=== PATIENT | female | born 1990 | race American Indian/Alaskan Native ===

== ENCOUNTER 2017-04-21 11:59 | Emergency (ER) | payer MEDICAID ==
--- NOTE | 2017-04-21 13:53 | Emergency Department Report ---
Entered by MACY STEINER, acting as scribe for ISI MULLEN PA. Chief Complaint: Vaginal Bleeding Stated Complaint: PREG/SPOTTING/ITCHING Time Seen by Provider: 04/21/17 13:13 - HPI History of Present Illness: Pt that is presents with c/o vaginal spotting for 2 days. Notes that she doesn't know how many weeks she is. Reports associated vaginal itching and cramping 6/10 pelvic pain. Notes she took 5 at home tests with positive results. Aggravated with movement and walking around, and alleviated with sleeping. Reports urinary frequency. Denies flowing vaginal bleeding or clots. Denies dysuria. LMP 03/20/2017. L4 PMHx of HTN PSHx of appendectomy - ROS Review of Systems: All system are negative unless stated in HPI above. - Exam Vital Signs: Vital Signs 04/21/17 12:59 Temperature 99.3 F Pulse Rate 76 Respiratory 16 Rate Blood Pressure 124/71 O2 Sat by Pulse 100 Oximetry Physical Exam: General: well nourished, well developed, 27 year old female in no acute distress and nontoxic in appearance Abdomen: Soft, normal bowel sounds in all quadrants and negative CVA tenderness bilaterally. Tenderness to palpation to pelvic area. No distension or rigidity noted. Positive guarding. No rebound. MSE screening note: Focused history and physical exam performed. Due to findings the following was ordered: see below ED Medical Decision Making - Medical Decision Making MDM: Patient screened by provider in triage area. Appropriate protocol initiated. Patient to be seen by MD on main ED side. ED Disposition for MSE Condition: Stable This documentation as recorded by the scribe,MACY STEINER,accurately reflects the service I personally performed and the decisions made by me,ISI MULLEN PA.
[2017-04-21 14:34] LABS: Basophils % (Auto) 0.4 % (0.0-1.8); Eosinophils % (Auto) 1.5 % (0.0-4.3); Hematocrit 37.9 % (30.3-42.9); Hemoglobin 13.4 gm/dl (10.1-14.3); Mean Corpuscular HGB Conc 35 % (30-34); Mean Corpuscular Hemoglobin 32 pg (28-32); Mean Corpuscular Volume 90 fl (79-97); Platelet Count 269 K/mm3 (140-440); Red Blood Count 4.21 M/mm3 (3.65-5.03); Red Cell Distribution Width 13.1 % (13.2-15.2); White Blood Count 9.1 K/mm3 (4.5-11.0)
[2017-04-21 15:10] LABS: Bilirubin,Urine NEG (Negative); Blood,Urine NEG (Negative); Ketones,Urine NEG (Negative); Leukocyte Esterase,Urine NEG (Negative); Mucus,Urine FEW /HPF; Nitrite,Urine NEG (Negative); Protein,Urine <15 mg/dL mg/dL (Negative); Urobilinogen,Urine < 2.0 mg/dL (<2.0)
[2017-04-21 15:16] LABS: WBC,Urine < 1.0 /HPF (0.0-6.0)
--- NOTE | 2017-04-21 16:00 | Ultrasound Report ---
OB ultrasound: with pain and bleeding. Endovaginal and transabdominal imaging demonstrates an anteverted uterus measuring approximately 6.3 x 6.5 x 10.8 cm. There is an 11 mm subendometrial appearing fibroid. The myometrium is otherwise unremarkable. The endometrial thickness is 14.3 mm. No evidence of endometrial . The right ovary measures 3.8 cm and contains a 2 cm slightly complex cyst. The left ovary measures 3 cm and is echogenically unremarkable. No adnexal masses and no free fluid identified. Impression: No current evidence of intra-or extrauterine . Right ovarian cyst.
[2017-04-21 16:57] VITALS: BP 109/57
== END 2017-04-21 17:24 | disposition left against medical advice (07) ==
LOC: ED 11:59
DX: O26.859 Spotting complicating pregnancy, unspecified trimester (principal); I10 Essential (primary) hypertension; Z3A.00 Weeks of gestation of pregnancy not specified; Z53.21 Procedure and treatment not carried out due to patient leaving prior to being seen by health care provider
CPT/HCPCS: 36415; 76801; 76817; 81001; 84702; 84703; 85025; 86850; 86900; 86901

== ENCOUNTER 2019-01-25 03:04 | Emergency (ER) | payer MEDICAID ==
[2019-01-25 03:10] VITALS: BP 123/81
[2019-01-25 03:47] LABS: Bilirubin,Urine NEG (Negative); Blood,Urine SM (Negative); Color,Urine Straw (Yellow); Protein,Urine <15 mg/dL mg/dL (Negative); Urobilinogen,Urine < 2.0 mg/dL (<2.0)
[2019-01-25 03:59] LABS: Hematocrit 42.5 % (30.3-42.9); Hemoglobin 15.2 gm/dl (10.1-14.3); Mean Corpuscular Volume 92 fl (79-97); Red Blood Count 4.62 M/mm3 (3.65-5.03)
[2019-01-25 04:00] LABS: Basophils % (Auto) 0.9 % (0.0-1.8); Eosinophils # (Auto) 0.5 K/mm3 (0.0-0.4); Eosinophils % (Auto) 5.3 % (0.0-4.3); Lymphocytes # (Auto) 3.9 K/mm3 (1.2-5.4); Lymphocytes % (Auto) 37.9 % (13.4-35.0); Mean Corpuscular HGB Conc 36 % (30-34); Monocytes # (Auto) 0.6 K/mm3 (0.0-0.8); Monocytes % (Auto) 5.9 % (0.0-7.3); Platelet Count 251 K/mm3 (140-440); Red Cell Distribution Width 13.5 % (13.2-15.2)
[2019-01-25 04:01] LABS: Basophils # (Auto) 0.1 K/mm3 (0.0-0.1)
[2019-01-25 04:06] LABS: Alanine Aminotransferase 16 units/L (7-56); BUN/Creatinine Ratio 15; Blood Urea Nitrogen 9 mg/dL (7-17); Calcium 8.8 mg/dL (8.4-10.2); Hemolysis Index 9
== END 2019-01-25 05:59 | disposition left against medical advice (07) ==
LOC: ED 03:04
DX: R10.9 Unspecified abdominal pain (principal); Z53.21 Procedure and treatment not carried out due to patient leaving prior to being seen by health care provider
CPT/HCPCS: 36415; 80053; 81001; 83690; 84703; 85025

== ENCOUNTER 2020-09-11 13:47 | Emergency (ER) | payer MEDICAID ==
[2020-09-11 13:53] VITALS: BP 131/86
--- NOTE | 2020-09-11 14:11 | Event Note ---
ED Screening Note ED Screening Note: a week having decreased appetite states she has blurred vision states she has tingling all over has generalized weakness she appears anxious hx of anxiety, not on any medication no SI no HI no fever no v/d no cough PMHx none no allergies to meds LNMP: 08/31/2020 This initial assessment/diagnostic orders/clinical plan/treatment(s) is/are subject to change based on patients health status, clinical progression and re- assessment by fellow clinical providers in the ED. Further treatment and workup at subsequent clinical providers discretion. Patient/guardian urged not to elope from the ED as their condition may be serious if not clinically assessed and managed. Initial orders include: labs, ua, ekg, ct head
[2020-09-11 15:05] LABS: Bacteria,Urine 1+ /HPF (Negative); Bilirubin,Urine NEG (Negative); Blood,Urine NEG (Negative); Color,Urine Amber (Yellow); Mucus,Urine 3+ /HPF
[2020-09-11 15:08] LABS: Amphetamine Screen,Urine Negative; Benzodiazepines Screen,Urine Negative; Cocaine Screen,Urine Negative; Methadone Screen,Urine Negative; Opiate Screen,Urine Negative
--- NOTE | 2020-09-11 15:15 | Cat Scan Report ---
NONENHANCED CT SCAN OF THE HEAD: INDICATION / CLINICAL INFORMATION: 30 years Female; weakness, tingling, blurred vision. TECHNIQUE: Routine CT head without contrast. All CT scans at this location are performed using CT dos e reduction for ALARA by means of automated exposure control. COMPARISON: None. FINDINGS: BRAIN / INTRACRANIAL CONTENTS: No acute hemorrhage, mass effect, midline shift, hydrocephalus, or acu te, large territorial infarct. No chronic infarct or focal atrophy. Normal brain volume and ventricul ar/sulcal size for age. No significant white matter abnormality. CRANIOCERVICAL JUNCTION: No significant abnormality. ORBITS: No significant abnormality of visualized orbits. SINUSES / MASTOIDS: No significant abnormality of the visualized paranasal sinuses or mastoid air elissa ls. ADDITIONAL FINDINGS: None. IMPRESSION: Normal nonenhanced CT scan of the brain Signer Name: Molina Banerjee MD Signed: 09/11/2020 3:10 PM Workstation Name: [id number]
[2020-09-11 15:26] LABS: Cannabinoid Screen,Urine Positive
--- NOTE | 2020-09-11 15:37 | Emergency Department Report ---
ED General Adult HPI - General Chief complaint: Weakness Stated complaint: DISORIENTED/RT SIDE TINGLE Time Seen by Provider: 09/11/20 14:08 Source: patient Mode of arrival: Ambulatory Limitations: No Limitations - History of Present Illness Initial comments: 30-year-old female presenting with multiple complaints. She states that she has felt very disoriented for the past 7 to 10 days, intermittently having blurred vision, lightheadedness, dizziness, palpitations, tingling to both arms and legs and feeling weak. She states that she has been mourning the loss of her father and has been drinking alcohol daily, 2-3 drinks. Denies any SI or HI. She states that she felt like she was going to pass out this morning which prompted her to get seen for her symptoms. Denies any other associated complaints, onset gradual, severity moderate, no modifying factors. - Related Data Previous Rx's Medication Instructions Recorded Last Taken Type LORazepam [Ativan] 0.5 mg PO BID PRN #10 tab 09/11/20 Unknown Rx Promethazine [Phenergan] 25 mg PO Q6HR PRN #12 tab 09/11/20 Unknown Rx Allergies Allergy/AdvReac Type Severity Reaction Status Date / Time hydrocodone Allergy Itching Unverified 09/02/15 16:16 ED Review of Systems ROS: Stated complaint: DISORIENTED/RT SIDE TINGLE Other details as noted in HPI Comment: All other systems reviewed and negative ED Past Medical Hx - Past Medical History Previous Medical History?: Yes Hx Hypertension: Yes Hx Diabetes: No Hx Deep Vein Thrombosis: No Hx Renal Disease: No Hx Sickle Cell Disease: No Hx Seizures: No Hx Asthma: No Hx HIV: No - Surgical History Past Surgical History?: Yes Hx Appendectomy: Yes - Social History Smoking Status: Never Smoker Substance Use Type: None - Medications Home Medications: Home Medications Medication Instructions Recorded Confirmed Last Taken Type LORazepam [Ativan] 0.5 mg PO BID PRN #10 tab 09/11/20 Unknown Rx Promethazine [Phenergan] 25 mg PO Q6HR PRN #12 tab 09/11/20 Unknown Rx ED Physical Exam - General Limitations: No Limitations General appearance: alert, in no apparent distress - Head Head exam: Present: atraumatic, normocephalic - Eye Eye exam: Present: normal appearance, PERRL, EOMI - ENT ENT exam: Present: mucous membranes moist - Neck Neck exam: Present: normal inspection - Respiratory Respiratory exam: Present: normal lung sounds bilaterally. Absent: respiratory distress - Cardiovascular Cardiovascular Exam: Present: regular rate, normal rhythm. Absent: systolic murmur, diastolic murmur, rubs, gallop - GI/Abdominal GI/Abdominal exam: Present: soft, normal bowel sounds. Absent: distended, guarding - Extremities Exam Extremities exam: Present: normal inspection - Back Exam Back exam: Present: normal inspection - Neurological Exam Neurological exam: Present: alert, oriented X3, CN II-XII intact, normal gait, reflexes normal. Absent: motor sensory deficit - Psychiatric Psychiatric exam: Present: normal affect, normal mood - Skin Skin exam: Present: warm, dry, intact, normal color. Absent: rash ED Course Vital Signs 09/11/20 13:50 Temperature 98.4 F Pulse Rate 100 H Respiratory 18 Rate Blood Pressure 131/86 [Right] O2 Sat by Pulse 95 Oximetry ED Medical Decision Making - Lab Data Result diagrams: 09/11/20 15:10 09/11/20 15:10 - EKG Data -: EKG Interpreted by Me EKG shows normal: sinus rhythm, axis, intervals, QRS complexes, ST-T waves Rate: normal - Radiology Data Radiology results: report reviewed Negative CT head - Medical Decision Making Patient presenting with multiple complaints as discussed in HPI including lightheadedness dizziness diffuse tingling all intermittent in nature. Exam is normal. I suspect symptoms are a psychiatric origin due to likely depression and anxiety from morning of her father and increased use of alcohol. Denies any SI or HI. Screening labs will be obtained. CT head was ordered from triage and is negative. Patient given IV fluids and Zofran. Labs showed an elevated MCHC at 38, patient has had elevated MCHC in the past though this is a bit higher than her usual, of note on the chemistry panel albumin seems to be undetectable, clinically this would make me suspect a lab error when comparing to prior labs. CT head negative, remainder of labs stable other than THC positive on drug screen. Encourage patient to abstain from drinking as much as possible and follow-up with PCP for repeat labs in 1 week. She states that this time she feels much better and is ready for discharge and agrees that a lot of anxiety has been oc curring due to a lot of life changes. Return precautions were given. She agrees with plan. - Differential Diagnosis Anxiety, alcoholism, dehydration Critical care attestation.: If time is entered above; I have spent that time in minutes in the direct care of this critically ill patient, excluding procedure time. ED Disposition Clinical Impression: Anxiety, Alcohol use Disposition: DC-01 TO HOME OR SELFCARE Is pt being admited?: No Condition: Good Instructions: Managing Anxiety, Adult Prescriptions: LORazepam [Ativan] 0.5 mg PO BID PRN #10 tab PRN Reason: Anxiety Promethazine [Phenergan] 25 mg PO Q6HR PRN #12 tab PRN Reason: Nausea Referrals: PRIMARY CARE, [Primary Care Provider] - 3-5 Days Time of Disposition: 16:28
[2020-09-11 15:51] LABS: Alanine Aminotransferase 15 units/L (7-56); Blood Urea Nitrogen 5 mg/dL (7-17); Calcium 9.6 mg/dL (8.4-10.2); Hemolysis Index 18
[2020-09-11 15:53] LABS: Albumin < 0.2 g/dL (3.9-5); BUN/Creatinine Ratio 7
[2020-09-11 16:02] LABS: Basophils % (Auto) 0.8 % (0.0-1.8); Eosinophils # (Auto) 0.1 K/mm3 (0.0-0.4); Eosinophils % (Auto) 1.5 % (0.0-4.3); Lymphocytes # (Auto) 2.4 K/mm3 (1.2-5.4); Lymphocytes % (Auto) 38.4 % (13.4-35.0); Mean Corpuscular Volume 91 fl (79-97); Monocytes # (Auto) 0.4 K/mm3 (0.0-0.8); Monocytes % (Auto) 6.6 % (0.0-7.3); Platelet Count 263 K/mm3 (140-440); Red Blood Count 4.48 M/mm3 (3.65-5.03); Red Cell Distribution Width 13.6 % (13.2-15.2)
[2020-09-11 16:15] LABS: Hemoglobin 15.3 gm/dl (10.1-14.3)
[2020-09-11 16:16] LABS: Hematocrit 40.7 % (30.3-42.9); Mean Corpuscular HGB Conc 38 % (30-34)
[2020-09-11] MEDS ORDERED: LACTATED RINGERS 1,000 ML IV ONE (16:22)
[2020-09-11] MEDS ORDERED: ONDANSETRON 4 MG/2 ML INJ IV ONE (16:25)
== END 2020-09-11 17:25 | disposition home or self-care (01) ==
LOC: ED 13:47
DX: F41.9 Anxiety disorder, unspecified (principal); R42 Dizziness and giddiness; Z72.89 Other problems related to lifestyle; I10 Essential (primary) hypertension; Z90.49 Acquired absence of other specified parts of digestive tract; Z79.899 Other long term (current) drug therapy; Z88.8 Allergy status to other drugs, medicaments and biological substances
CPT/HCPCS: 36415; 70450; 80053; 80307; 81001; 82550; 83735; 84443; 85025; 93005; 96361; 96374; 99284; J2405; J7120; 80320; G0480

== ENCOUNTER 2021-09-02 17:35 | Emergency (ER) | payer MEDICAID | END 2021-09-04 10:52 | disposition left against medical advice (07) | LOC: ED 17:35 | DX: Z00.00 Encounter for general adult medical examination without abnormal findings (principal); Z53.21 Procedure and treatment not carried out due to patient leaving prior to being seen by health care provider ==